=== PATIENT | male | born 1995 | race Caucasian/White ===

== ENCOUNTER 2021-02-07 08:31 | Outpatient (CLI) | payer OTHER ==
[2021-02-07 09:07] VITALS: BP 118/80
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
== END 2021-02-07 08:32 | disposition home or self-care (01) ==
LOC: SC 08:31
PROVIDERS: ATTEND Nurse Practitioner Family
DX: R06.83 Snoring (principal); R06.81 Apnea, not elsewhere classified; G47.8 Other sleep disorders; R41.89 Other symptoms and signs involving cognitive functions and awareness; R51.9 Headache, unspecified; G47.10 Hypersomnia, unspecified; E66.3 Overweight; Z68.27 Body mass index [BMI] 27.0-27.9, adult
CPT/HCPCS: 99203; 99212

== ENCOUNTER 2021-03-16 20:02 | Outpatient (CLI) | payer OTHER | END 2021-03-16 20:03 | disposition home or self-care (01) | LOC: SC 20:02 | PROVIDERS: ATTEND Nurse Practitioner Family | DX: G47.33 Obstructive sleep apnea (adult) (pediatric) (principal) | CPT/HCPCS: 95810 ==

== ENCOUNTER 2021-03-29 15:21 | Outpatient (CLI) | payer OTHER ==
--- NOTE | 2021-03-29 15:40 | SLEEP CARE CONSULTATION ---
Information from patient questionnaire entered by Sara Buenrostro. I have reviewed and concur with the information entered by Sara Buenrostro. This document represents the service I personally performed and the decisions made by , Kellen Ray ARNP. History of Present Illness Service Date and Time: 03/29/2021 152 Initial [place] Sleepiness Scale score: 21 (in 2020) Current [place] Sleepiness Scale score: 17 Additional HPI information: JONATHON MEJIA returns via Telehealth visit for follow up and results of the recently performed polysomnography. I explained the pathophysiology behind obstructive sleep apnea. We then spent quite a bit of time discussing different treatment options. For mild obstructive sleep apnea, surgery and oral appliance are alternatives to nasal CPAP therapy but in moderate or severe cases, nasal CPAP is the most effective and reliable treatment. Because apnea is primarily in supine position, then positional management therapy could be effective. Methods discussed such as positioning with pillows, using a T-shirt with tennis balls in the back, and shown commercial products that have a pillow format on back to prevent supine sleep. I reviewed the impact of weight changes on sleep apnea and strongly recommended losing weight. After some discussion, the patient opted to go with the nasal CPAP therapy. Nasal autoCPAP set at 4-15 cmH20 will be ordered with rationale explained. A manual titration study will be ordered if unable to find optimal pressure with office adjustments. I explained how CPAP machine works with sample devices Respironics Dreamstation and ResSynqera [id number] and what to expect when using the machine. Using CPAP every night in order to get used to it was emphasized. Patient advised to put CPAP mask on before getting into bed so as not to fall asleep without CPAP. To assist acclimation to CPAP use, it could also be used for a short time during day while reading or watching TV. The patient was instructed to call the CPAP supplier to discuss any mechanical problem that may occur. If the mask given is uncomfortable or is difficult to keep on through the night even with adjustment, contact the CPAP supplier as many will replace with another mask style if notified before 30 days. If snoring or perceives is not getting enough air or too much air from the machine, notify this office. [facility] patient education PAP tips reviewed and given to patient. Patient counseled not drink alcohol less than 4 hours before bedtime as it can increase snoring and apnea. Patient was cautioned about risks of drowsy driving until sleepiness symptoms resolve. Sleep Study - Results Type of Sleep Study: Polysomnography Prior sleep studies: No Polysomnography/Home Sleep Study results: IMPRESSION: The quality of the study is good. The patient had normal sleep efficiency. The sleep architecture was also normal. Respiratory monitoring showed mild obstructive sleep apnea- hypopnea (AHI = 5.6) associated with oxyhemoglobin desaturation and mild hypoxia (gabrielle oxygen saturation of 86 %). The respiratory events occurred almost exclusively during supine sleep (supine AHI = 6.8; non-supine = 3.49). Snore was infrequent and light in intensity. There was no significant periodic leg movement of sleep. Cardiac rhythm was normal sinus rhythm without significant arrhythmia. No abnormal behavior (parasomnia) observed during the night. Allergies and Home Medications Home medication list reviewed: Yes (no changes) Review of Systems Review of systems same as previous: Yes (no changes) Physical Exam Vital signs obtained and entered by: Telehealth visit to reduce exposure during Covid pandemic Height: 5 ft 10 in Impression and Plan 1. Obstructive Sleep Apnea-Hypopnea Syndrome, mild, with lowest oxygen saturation of 86%. Obviously this is the cause of the patients symptoms of unrefreshed sleep, and excessive daytime sleepiness. Positive pressure therapy could benefit his overall health and reduce risks of cardiovascular or cerebrovascular adverse events. As mentioned above, the patient will be started on nasal autoCPAP therapy with pressure set at 4-15 cmH2O. A manual titration study will be completed if unable to find optimal treatment pressure with office adjustments. Compliance guidelines also reviewed. A copy of compliance guideline s will be given for reference at check out. Because the apnea is more severe supine, I instructed to avoid sleeping supine using pillow positioning until able to start CPAP use. * Nasal auto CPAP therapy, pressure at 4-15 cm H2O. * Attempt to lose weight. * Avoid alcohol consumption near bedtime. * Avoid supine sleep until using CPAP. * The patient is again cautioned about driving until sleepiness completely resolves. * Return one month after CPAP obtained. I will assess response to therapy and compliance at that time. Counseling Topics: Weight loss health impact Visit Type: Telehealth Video Video Type: VSee Patient Location: Car Location of Provider: Office Patient agrees and consents to this telehealth visit type: Yes Patient agrees to have their insurance billed: Yes Time Spent with Patient (minutes): 20 Provider Statement: I spent 100% of the Telehealth Video Call with the patient with greater than 50% spent counseling the patient and coordination of care.
== END 2021-03-29 15:22 | disposition home or self-care (01) ==
LOC: SC 15:21
PROVIDERS: ATTEND Nurse Practitioner Family
DX: G47.33 Obstructive sleep apnea (adult) (pediatric) (principal)

== ENCOUNTER 2021-09-27 08:43 | Outpatient (CLI) | payer OTHER ==
[2021-09-27 09:32] VITALS: BP 137/84
--- NOTE | 2021-09-27 09:32 | SLEEP CARE CONSULTATION ---
Information from patient questionnaire entered by Tito Yu MA. I have reviewed and concur with the information entered by Tito Yu MA. This document represents the service I personally performed and the decisions made by , Kellen Ray ARNP. History of Present Illness Service Date and Time: 09/27/2021 0843 Previous diagnosis: Mild, Obstructive Sleep Apnea-Hypopnea Syndrome AHI: 5.6 Reason for follow up: first compliance Equipment type: CPAP Equipment obtained from: Other ([facility]: getting supplies as needed) Mask style: Full face Mask brand: Resmed Backup mask available: Yes (old mask) Last cushion change: today Prior sleep studies: No Type of Sleep Study: Polysomnography HPI additional information: JONATHON MEJIA was diagnosed to have mild, AHI 5.6, obstructive sleep apnea- hypopnea syndrome and returned today for CPAP therapy first compliance follow- up. Sleep Study - Results Type of Sleep Study: Polysomnography Prior sleep studies: No CPAP Compliance Data - Data Reviewed with Patient Average duration of nightly device use: 1 HOUR 17 MINUTES Compliance rate %: 0 Current pressure setting (cmH2O): 4-15 (median 5.8, avg 8.1, max 8.6) Average residual AHI: 3.2 Central apnea: 1.3 Obstructive apnea: 1.7 Average large leak: 7.0 Subjective Missed days of use due to: reports: mask issues (TAKES OF MASK WHILE SLEEPING), other (LOST CPAP MACHINE AT AIRPORT, DIDNT LIKE THE NOSE HOSE, RECVD NEW MASK, ) Patient concerns: reports: mask discomfort (better with change to full face mask). denies: aerophagia, air blowing in eyes, mask leak noise, condensation in mask/hose, nasal congestion, dry mouth, nose, throat, epistaxis, other Observed to snore while using device: No Current pressure setting perceived as: comfortable On therapy, patient: reports: sleeping better, awakening more refreshed, being more awake and alert during the day, more rested overall. denies: drowsiness while driving Initial [place] Sleepiness Scale score: 21 (in 2020) Current [place] Sleepiness Scale score: 18 (2021) Allergies and Home Medications Known drug allergies: No Drug allergies reviewed: Yes Home medication list reviewed: Yes (no changes) Review of Systems Review of systems same as previous: Yes (no changes) Physical Exam Vital signs obtained and entered by: Solitario Yu MA AACESAR Blood Pressure: 137/84 (RIGHT, PULSE 61, RESP 16) Heart Rate: 72 O2 Saturation: 97 (WITH PAPER MASK) Height: 5 ft 10 in Weight: 192 lb (WITH CLOTHES) Body Mass Index: 27.5 BMI Classification: Overweight Impression and Plan 1. Obstructive Sleep Apnea-Hypopnea Syndrome, mild, with poor treatment compliance and good apnea control. On CPAP therapy, the patient has better sleep quality and is more rested overall. The patients pressure will be changed to autoCPAP 8-9 cmH20 to reflect pressures patient has been using. Patient advised to contact me if pressure change is uncomfortable so that it can be adjusted. Goals for apnea control discussed.Patient has had some difficulties because he [place] the airport and it took 3 and half weeks for him to get it back. He had a change from the nasal mask to a full facemask for comfort. He states when he does use the CPAP he wakes up feeling rested and has more energy and is not tired throughout the day. His compliance is poor due to him losing his CPAP but he is trying to use it every night now that he has it back. Patient's apnea severity and rationale for treatment to reduce apnea, improve sleep quality and reduce cardiovascular and cerebrovascular events was reviewed. Currently patients BMI is 27.5. Obesity increases the risk of apnea, CPAP pressure requirements and overall health risks especially cardiovascular and diabetes. Patient was encouraged to lose weight for their overall health and to reduce apneas. * Change auto CPAP pressure to 8-9 cmH2O * Notify me if snoring with mask or feeling that the pressure is too much or too little * Attempt to lose weight * Call this office if any problems using CPAP * Return for follow up in 1-2 months, or sooner if concerns arise Counseling Topics: Spare mask, Weight loss health impact Visit Type: In Office Time Spent with Patient (minutes): 20 Provider Statement: I spent 100% of the Face to Face Visit with the patient with greater than 50% spent counseling the patient and coordination of care.
== END 2021-09-27 08:44 | disposition home or self-care (01) ==
LOC: SC 08:43
PROVIDERS: ATTEND Nurse Practitioner Family
DX: G47.33 Obstructive sleep apnea (adult) (pediatric) (principal)
CPT/HCPCS: 99212; 99213

== ENCOUNTER 2021-11-22 08:51 | Outpatient (CLI) | payer OTHER ==
[2021-11-22 09:21] VITALS: BP 137/89
--- NOTE | 2021-11-22 09:21 | SLEEP CARE CONSULTATION ---
Information from patient questionnaire entered by Tito Yu MA. I have reviewed and concur with the information entered by Tito Yu MA. This document represents the service I personally performed and the decisions made by , Kellen Ray ARNP. History of Present Illness Service Date and Time: 11/22/2021 0851 Previous diagnosis: Mild, Obstructive Sleep Apnea-Hypopnea Syndrome AHI: 5.6 (in 2020) Reason for follow up: other (2 MONTH F/U, PRESSURE CHANGE, ) Equipment type: CPAP Equipment obtained from: Other ([facility]; getting supplies as needed) Mask style: Full face Mask brand: Resmed Backup mask available: Yes (other mask) Last cushion change: 1 week Prior sleep studies: No Type of Sleep Study: Polysomnography HPI additional information: JONATHON MEJIA was diagnosed to have mild, AHI 5.6, obstructive sleep apnea- hypopnea syndrome and returned today for CPAP therapy 2 month with pressure change follow-up. Sleep Study - Results Type of Sleep Study: Polysomnography Prior sleep studies: No CPAP Compliance Data - Data Reviewed with Patient Average duration of nightly device use: 1 HOUR 31 MINUTES Compliance rate %: 0 Current pressure setting (cmH2O): 8-9 Average residual AHI: 1.9 Central apnea: 1.0 Obstructive apnea: .8 Average large leak: 11.4 Subjective Missed days of use due to: reports: illness (nasal congestion making it hard to breathe with mask), travel, other (falling asleep on mask) Patient concerns: reports: nasal congestion. denies: aerophagia, mask discomfort, air blowing in eyes, mask leak noise, condensation in mask/hose, dry mouth, nose, throat, epistaxis, other Observed to snore while using device: No Current pressure setting perceived as: comfortable On therapy, patient: reports: sleeping better, awakening more refreshed, being more awake and alert during the day, more rested overall. denies: drowsiness while driving Initial [place] Sleepiness Scale score: 21 (in 2020) Current [place] Sleepiness Scale score: 20 (11/30) Allergies and Home Medications Known drug allergies: No Drug allergies reviewed: Yes Home medication list reviewed: Yes (no changes) Review of Systems Review of systems same as previous: Yes (no changes) Physical Exam Vital signs obtained and entered by: Solitario YU CMA [facility] Blood Pressure: 137/89 (PULSE 65, RESP 16, RIGHT X 2) Cuff size: wrist Heart Rate: 64 O2 Saturation: 98 (PAPER) Height: 5 ft 10 in Weight: 189 lb (PT CLOTHES) Weight change since last visit: 3 lb loss Body Mass Index: 27.1 BMI Classification: Overweight Impression and Plan 1. Obstructive Sleep Apnea-Hypopnea Syndrome, mild, with poor treatment compliance and good apnea control. On CPAP therapy, the patient has better sleep quality and is more rested overall. Patient states he was sick and nasal congestion made it difficult to use his CPAP. He also did some traveling did not use his CPAP during that time. He states he is trying to use because he does see improvement when he does use and even though his average is about 2 hours.He states he has been working on his laptop for school and will fall asleep on the couch. He has since moved his laptop into the bedroom so he needs to crash he can just put his mask on go to sleep. I encouraged him to set a alarm to remind him to go to bed if he falls asleep on the couch again. He voiced understanding and agreement with plan. Patient's apnea severity and rationale for treatment to reduce apnea, improve sleep quality and reduce card iovascular and cerebrovascular events was reviewed. 2. Overweight, unspecified. Patient has lost weight. Currently patients BMI is [27.1]. Weight loss can be done with reducing portion size, reducing refined foods and balancing content with vegetables, fruit and whole grain foods. In addition, patient encouraged to get regular exercise. * Continue auto CPAP pressure at 8-9 cmH2O * Notify me if snoring with mask or feeling that the pressure is too much or too little * Attempt to lose weight * Call this office if any problems using CPAP * Return for follow up in 1-2 months, or sooner if concerns arise Counseling Topics: Spare mask, Weight loss health impact Visit Type: In Office Time Spent with Patient (minutes): 11 Provider Statement: I spent 100% of the Face to Face Visit with the patient with greater than 50% spent counseling the patient and coordination of care.
== END 2021-11-22 08:52 | disposition home or self-care (01) ==
LOC: SC 08:51
PROVIDERS: ATTEND Nurse Practitioner Family
DX: G47.33 Obstructive sleep apnea (adult) (pediatric) (principal); E66.3 Overweight; Z68.27 Body mass index [BMI] 27.0-27.9, adult
CPT/HCPCS: 99212

== ENCOUNTER 2022-01-24 08:45 | Outpatient (CLI) | payer OTHER ==
[2022-01-24 09:28] VITALS: BP 130/77
--- NOTE | 2022-01-24 09:28 | SLEEP CARE CONSULTATION ---
Information from patient questionnaire entered by Tito Yu MA. I have reviewed and concur with the information entered by Tito Yu MA. This document represents the service I personally performed and the decisions made by , Kellen Ray ARNP. History of Present Illness Service Date and Time: 01/24/2022 0845 Previous diagnosis: Mild, Obstructive Sleep Apnea-Hypopnea Syndrome AHI: 5.6 Reason for follow up: other (2 MONTH F/U, RESMED, ) Equipment type: CPAP Equipment obtained from: Other ([facility]: getting supplies as needed) Mask style: Full face Mask brand: Resmed (Airfit) Backup mask available: No (will need to keep old mask when replaced) Last cushion change: 1-2 weeks Prior sleep studies: No Type of Sleep Study: Polysomnography HPI additional information: JONATHON MEJIA was diagnosed to have mild, AHI 5.6, obstructive sleep apnea- hypopnea syndrome and returned today for CPAP therapy two month follow-up. Sleep Study - Results Type of Sleep Study: Polysomnography Prior sleep studies: No CPAP Compliance Data - Data Reviewed with Patient Average duration of nightly device use: 58 MINUTES Compliance rate %: 0 Average residual AHI: 0 Central apnea: 0 Obstructive apnea: 0 Hypopnea: 0 Average large leak: 15.6 Compliance data discussion: Patient was sick with Covid infection and then got a secondary sinus infection. He was not allowed to use it when he was sick per his attending provider. He then had a broken hose on his machine that was replaced by the wrong sized hose. He has since gotten a new hose and has been using his CPAP. He is trying to put the mask on every night but will take it off about an hour after he falls a sleep. He does not notice it during the night and finds it off in the morning. Subjective Missed days of use due to: reports: mask issues (taking mask off when asleep), illness (COVID, SINUS INFECTION REQ NOT TO USE. ), travel (, DET/DEPLOYMENT) Patient concerns: denies: aerophagia, mask discomfort, air blowing in eyes, mask leak noise, condensation in mask/hose, nasal congestion, epistaxis, other Observed to snore while using device: No Current pressure setting perceived as: comfortable On therapy, patient: reports: other (has not been able to use enough to tell a difference in sleep) Initial [place] Sleepiness Scale score: 21 (in 2020) Current [place] Sleepiness Scale score: 21 Allergies and Home Medications Home medication list reviewed: Yes (no changes) Review of Systems Review of systems same as previous: No (had Covid and sinus infection) Physical Exam Vital signs obtained and entered by: Solitario YU CMA AAMA Blood Pressure: 130/77 (RESP 20, PULSE 63, LEFT,) Heart Rate: 62 O2 Saturation: 98 (PAPER MASK) Height: 5 ft 10 in Weight: 190 lb Body Mass Index: 27.2 BMI Classification: Overweight Impression and Plan 1. Obstructive Sleep Apnea-Hypopnea Syndrome, mild, with poor treatment compliance and good apnea control. Patient was sick with Covid and a sinus infection for about three weeks. He was unable to use his CPAP. He also had an issue with a broken hose. Since getting the right hose from his DME, he has been trying to use his CPAP. He states he puts the mask on and will take it off in his sleep. He will wake up and it is off his face or he has unhooked the hose from the mask. He wants to continue to try to use his CPAP. I reviewed his sleep study and he is in a normal range non-supine with an AHI of 3.49. We discussed changed to positional therapy if he continues to have problems keeping the mask on when asleep. He voiced understanding but wants to continue with CPAP at this time. We will discuss again later if he continues to have problems. Patient's apnea severity and rationale for treatment to reduce apnea, improve sleep quality and reduce cardiovascular and cerebrovascular events was reviewed. * Continue auto CPAP pressure at 8-9 cmH2O * Notify me if snoring with mask or feeling that the pressure is too much or too little * Attempt to lose weight * Call this office if any problems using CPAP * Return for follow up in 1-2 months, or sooner if concerns arise Counseling Topics: Sleeping position, Weight loss health impact Visit Type: In Office Time Spent with Patient (minutes): 24 Provider Statement: I spent 100% of the Face to Face Visit with the patient with greater than 50% spent counseling the patient and coordination of care.
== END 2022-01-24 08:46 | disposition home or self-care (01) ==
LOC: SC 08:45
PROVIDERS: ATTEND Nurse Practitioner Family
DX: G47.33 Obstructive sleep apnea (adult) (pediatric) (principal); E66.3 Overweight; Z68.27 Body mass index [BMI] 27.0-27.9, adult
CPT/HCPCS: 99212; 99213

== ENCOUNTER 2022-04-12 08:00 | Outpatient (CLI) | payer OTHER ==
--- NOTE | 2022-04-12 09:15 | SLEEP CARE CONSULTATION ---
Information from patient questionnaire entered by Renae Cuenca. I have reviewed and concur with the information entered by Renae Cuenca. This document represents the service I personally performed and the decisions made by me, Kellen Ray ARNP. History of Present Illness Service Date and Time: 04/12/2022 0900 Previous diagnosis: Mild, Obstructive Sleep Apnea-Hypopnea Syndrome AHI: 5.6 (in 2020) Reason for follow up: other (2 MONTH, RESMED) Equipment type: CPAP Equipment obtained from: Other ([facility]; getting supplies as needed) Mask style: Full face Mask brand: Resmed (Airfit F20) Backup mask available: Yes (old mask) Last cushion change: 1 month Prior sleep studies: No Type of Sleep Study: Polysomnography HPI additional information: JONATHON MEJIA was diagnosed to have mild, AHI 5.6, obstructive sleep apnea- hypopnea syndrome and returns via video telehealth visit today for CPAP therapy two month follow-up. Sleep Study - Results Type of Sleep Study: Polysomnography Prior sleep studies: No CPAP Compliance Data - Data Reviewed with Patient Average duration of nightly device use: 52 Compliance rate %: 0 (4/60 days used) Current pressure setting (cmH2O): 8-9 Average residual AHI: 5.4 Average large leak: 0.3 Compliance data discussion: Patient has a ResMed Airsense 11. Subjective Missed days of use due to: reports: mask issues (taking mask off after falling asleep), travel, other (got wrong hose - has had hose now 1.5 weeks) Patient concerns: denies: aerophagia, mask discomfort, air blowing in eyes, mask leak noise, condensation in mask/hose, nasal congestion, dry mouth, nose, throat, epistaxis, other Observed to snore while using device: No Current pressure setting perceived as: comfortable On therapy, patient: reports: awakening more refreshed. denies: drowsiness while driving Initial [place] Sleepiness Scale score: 21 (in 2020) Current [place] Sleepiness Scale score: 18 (04/12/22) Allergies and Home Medications Home medication list reviewed: Yes (no changes) Review of Systems Review of systems same as previous: Yes (no changes) Physical Exam Vital signs obtained and entered by: ANDRES PIECER UP VIA PHONE Height: 5 ft 9 in Weight: 190 lb (pt reported) Body Mass Index: 28.0 BMI Classification: Overweight Impression and Plan 1. Obstructive Sleep Apnea-Hypopnea Syndrome, mild, with poor treatment compliance and good apnea control with minimal elevation of residual AHI. On CPAP therapy, the patient does feel more rested even with limited use lately. Patient's compliance is down because he had a broken house that was finally replaced with the right size hose and he was able to start using the CPAP again about a week and a half ago. He has been trying to sleep on his side when unable to use his CPAP and he has noticed a difference in restfulness and his has noticed a reduction in snoring. He states when he has been able to use the CPAP, even for 45 to 60 minutes he feels even more rested than when he is sleeping on his side. He wants to continue using the CPAP and trying to get more time with the mask on. He just takes the mask off after he falls asleep and then does not wake up to put it back on. He is going to make an effort to replace the mask when he takes it off at night. I will follow up with him in 1-2 months to see how he is doing. Patient's apnea severity and rationale for treatment to reduce apnea, improve sleep quality and reduce cardiovascular and cerebrovascular e vents was reviewed. * Continue auto CPAP pressure at 8-9 cmH2O * Notify me if snoring with mask or feeling that the pressure is too much or too little * Call this office if any problems using CPAP * Return for follow up in 1-2 months, or sooner if concerns arise Counseling Topics: Sleeping position, Spare mask Visit Type: Telehealth Video (PHONE# [phone]) Video Type: Doximity Patient Location: Home Location of Provider: Office Patient agrees and consents to this telehealth visit type: Yes Patient agrees to have their insurance billed: Yes Time Spent with Patient (minutes): 16 Provider Statement: I spent 100% of the Telehealth Video Call with the patient with greater than 50% spent counseling the patient and coordination of care.
== END 2022-04-12 23:59 | disposition home or self-care (01) ==
LOC: SC 08:00
PROVIDERS: ATTEND Nurse Practitioner Family
DX: G47.33 Obstructive sleep apnea (adult) (pediatric) (principal)

== ENCOUNTER 2023-09-21 15:15 | Emergency (ER) | payer OTHER ==
[2023-09-21 15:27] VITALS: BP 122/63; O2SAT 99
--- NOTE | 2023-09-21 15:27 | ED Physician Documentation ---
PD HPI LOWER EXT INJURY - Stated complaint Stated Complaint: RT ANKLE INJ - Chief complaint Chief Complaint: Trauma Ext - History obtained from History obtained from: Patient - History of Present Illness PD HPI LOW EXT INJURY LOCATION: Right, Ankle Type of injury: Twist (inversion direction when he accidentally stepped on one of his kids leg while playing. Pain lateral ankle with swelling and difficultly walking.) Worsened by: Moving, Palpating Associated symptoms: Swelling. No: Weakness, Numbness Review of Systems Musculoskeletal: reports: Back pain Neurologic: denies: Focal weakness, Numbness PD PAST MEDICAL HISTORY - Past Medical History Past Medical History: No Cardiovascular: None Respiratory: None Neuro: None Endocrine/Autoimmune: None GI: None : None HEENT: None Psych: None Musculoskeletal: None Derm: None - Past Surgical History Past Surgical History: Yes General: Hiatal hernia repair - Present Medications Home Medications: Ambulatory Orders Medication Instructions Recorded Confirmed No Known Home Medications 09/21/23 09/21/23 - Allergies Allergies/Adverse Reactions: Allergies Allergy/AdvReac Type Severity Reaction Status Date / Time No Known Drug Allergies Allergy Verified 09/21/23 15:17 - Social History Does the pt smoke?: No Smoking Status: Former smoker Does the pt drink ETOH?: No Does the pt have substance abuse?: No - Immunizations Immunizations are current?: Yes - POLST Patient has POLST: No PD ED PE NORMAL - Vitals Vital signs reviewed: Yes - General General: Alert and oriented X 3, No acute distress, Well developed/nourished - Derm Derm: Normal color, Warm and dry - Extremities Extremities: Other (right ankle lateral malleolus with focal tenderness, swelling. Achilles firm and intact. Medial ankle not tender. ) - Neuro Neuro: Alert and oriented X 3, No motor deficit, No sensory deficit Results - Vitals Vitals: Vital Signs - 24 hr 09/21/23 15:17 Temperature 36.5 C Heart Rate 96 Respiratory 16 Rate Blood Pressure 122/63 O2 Saturation 99 Oxygen O2 Source Room air - Rads (name of study) right ankle Relevant Findings:: Prelim report reviewed, EMP independent interpretation of test (no acute fractures. Old small avulsion type specks more c/w prior injuries, though cannot exclude small avulsion today. ) PD Medical Decision Making - ED course Complexity details: reviewed results (talked with pt about no significant fractures. Some small speck avulsions that likely old but cannot exclude new but would be treated as ligament injuries and not fracture per se. ), considered differential (inversion ankle injuury with swelling and pain, poor weight bearing ability.), d/w patient Departure - Departure Disposition: 01 Home, Self Care Clinical Impression: Ankle sprain Condition: Stable Record reviewed to determine appropriate education?: Yes Instructions: ED Sprain Ankle Follow-Up: Orthopedic Care [Provider Group] Comments: Your x-ray does not show any obvious notable fractures. There is a couple of small specks of calcification which are likely more residual from prior injury and not an acute process. This will get treated as a good sprain anyway given the size of the bone aspect. It does sound like an ankle sprain/strain. This can still take a while to heal and can be up to a few weeks at times. Ice elevate and rest your ankle often today and tomorrow in particular to help reduce swelling. Use the ankle brace to help support it in particular when up and around and active. You can have it off at times when resting. Crutches for partial to no weightbearing initially and progress as tolerated. Tylenol ibuprofen as needed for pains. Recheck/follow-up if not improving steadily over the next week or so and resolved by a few weeks. Forms: PCP List Discharge Date/Time: 09/21/23 16:15
--- NOTE | 2023-09-21 16:03 | XRAY Report ---
PROCEDURE: Ankle 3+V RT INDICATIONS: Trauma TECHNIQUE: 3 views of the ankle were acquired. COMPARISON: None. FINDINGS: Bones: Small calcification adjacent to tip of lateral malleolus is seen suggestive of avulsion injur y of indeterminate age. No other fracture or dislocation. Ankle mortise is normally aligned. No susp icious bony lesions. Soft tissues: Lateral ankle soft tissue swelling is seen. Small tibiotalar joint effusion. Achilles tendon appears normal. IMPRESSION: Suggestion of avulsion injury of indeterminate age involving tip of lateral malleolus. La teral ankle soft tissue swelling. No other fracture or dislocation. Small joint effusion. Ankle morti se is congruent. Reviewed by: Ish Katz MD on 09/21/2023 4:01 PM PST Approved by: Ish Katz MD on 09/21/2023 4:01 PM PST Station ID: [id number]
== END 2023-09-21 16:15 | disposition home or self-care (01) ==
LOC: ED 15:15
DX: S93.401A Sprain of unspecified ligament of right ankle, initial encounter (principal); X50.1XXA Overexertion from prolonged static or awkward postures, initial encounter
CPT/HCPCS: 99283

== ENCOUNTER 2023-12-09 11:04 | Outpatient (CLI) | payer OTHER ==
--- NOTE | 2023-12-09 22:00 | XRAY Report ---
PROCEDURE: Ankle 3+V RT INDICATIONS: RIGHT ANKLE PAIN TECHNIQUE: 3 views of the ankle were acquired. COMPARISON: 09/21/2023. FINDINGS: Bones: Again noted is small osseous fragment adjacent to tip of lateral malleolus. Mild osteoarthrit ic changes are noted involving tibiotalar joint with joint space narrowing and subchondral sclerosis. . Ankle mortise is normally aligned. No suspicious bony lesions. Soft tissues: No tibiotalar joint effusion. Achilles tendon appears normal. IMPRESSION: Subacute chronic appearing avulsion injury involving tip of lateral malleolus. No new fracture or dis location. 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 Reviewed by: Ish Vickers MD on 12/09/2023 9:59 PM PDT Approved by: Ish Vickers MD on 12/09/2023 9:59 PM PDT Station ID: [id number]
== END 2023-12-09 11:05 | disposition home or self-care (01) ==
LOC: DI 11:04
PROVIDERS: ATTEND Physician Assistant Surgical
DX: S82.61XA Displaced fracture of lateral malleolus of right fibula, initial encounter for closed fracture (principal); M19.071 Primary osteoarthritis, right ankle and foot